=== PATIENT | female | born 1985 | race Caucasian/White ===

== ENCOUNTER 2019-09-02 05:39 | Inpatient (IN) | payer OTHER, SELFPAY ==
[2019-09-02 06:07] LABS: BHCG - Serum Negative (NEGATIVE); Pregs Control Background? CLEAR/WHITE (CLR/WHITE); Pregs Control Bar Appear? YES (CONTROL BAR)
[2019-09-02] MEDS ORDERED: Insulin Regular 100 units/100 ml in NS IVPB SCH (06:15)
[2019-09-02 06:18] LABS: Band 7 % (5-11); Elliptocytes SLIGHT = 2-5 cells (100X) (0-1/hpf); Hemoglobin 18.4 g/dL (12.0-16.0); Lymphocytes 6 % (21-51); MDiff Complete? YES; Mean Corpuscular HGB CONC 34.9 g/dL (32.0-36.0); Mean Corpuscular Hemoglobin 33.1 pg (27.0-31.0); Mean Corpuscular Volume 94.7 fL (78.0-98.0); Mean Platelet Volume 7.9 fL (7.4-10.4); Monocytes 2 % (0-10); Neutrophil 85 % (42-75); Platelet Count 219 thou/uL (130-400); Platelet Morphology Comment Appears Adequate; RBC Distribution Width 13.7 % (11.5-14.5); Red Blood Cell (RBC) Count 5.56 mill/uL (4.20-5.40)
[2019-09-02] MEDS ORDERED: Sodium Chloride 0.9% 1,000 ML IV PRN ×4 (06:23)
[2019-09-02] MEDS ORDERED: NS 0.9% w/ 20 MEQ KCL 1,000 ML IV PRN (06:23)
[2019-09-02] MEDS ORDERED: CCU Electrolyte Replacement 1 EACH IVPB ONE (06:23)
[2019-09-02] MEDS ORDERED: Dextrose 5 %-0.45 % NaCl 1,000 ML IV PRN (06:23)
[2019-09-02 06:25] LABS: ALT (SGPT) 12 U/L (8-55); AST (SGOT) 12 U/L (5-34); Albumin 4.8 g/dL (3.5-5.0); Alkaline Phosphatase 96 U/L (40-110); BUN (Urea Nitrogen) 16 mg/dL (7.0-18.7); Bilirubin, Total 0.9 mg/dL (0.2-1.2); Calc. Creatinine Clearance 0 mL/min (70-130); Calcium 8.6 mg/dL (7.8-10.44); Chloride 108 mmol/L (98-107); Estimated GFR-MDRD 41; Globulin 3.5 g/dL (2.4-3.5); Glucose 425 mg/dL (70-105); Magnesium 2.1 mg/dL (1.6-2.6); Potassium 3.9 mmol/L (3.5-5.1); Protein, Total 8.3 g/dL (6.0-8.3); Sodium 135 mmol/L (136-145)
[2019-09-02 06:29] LABS: Carbon Dioxide Less than 8 mmol/L (22-29)
[2019-09-02] MEDS ORDERED: PHOS-NAK 1 PKT PACK PO PRN ×2 (06:33)
[2019-09-02] MEDS ORDERED: CCU ELECTROLYTE REPLACEMENT PROTOCOL FS PRN (06:33)
[2019-09-02] MEDS ORDERED: Magnesium 2 GM/50 ML 2 GM in Premix Bag 1 BAG IVPB PRN (06:33)
[2019-09-02] MEDS ORDERED: Potassium Phosphate 12 MMOL in Sodium Chloride 0.9% 250 ML 250 ML IV PRN (06:33)
[2019-09-02] MEDS ORDERED: Potassium Phosphate 15 MMOL in Sodium Chloride 0.9% 250 ML 250 ML IV PRN (06:33)
[2019-09-02] MEDS ORDERED: Potassium Chloride 20 MEQ TAB PO PRN (06:33)
[2019-09-02] MEDS ORDERED: Potassium Chloride 40 MEQ in Sodium Chloride 0.9% 250 ML 250 ML IVPB PRN (06:33)
[2019-09-02] MEDS ORDERED: Magnesium Oxide 400 MG TAB PO PRN (06:33)
[2019-09-02] MEDS ORDERED: Potassium Phosphate 9 MMOL in Sodium Chloride 0.9% 100 ML IVPB PRN (06:33)
--- NOTE | 2019-09-02 07:19 | HP ---
CHIEF COMPLAINT: Shortness of breath, excessive thirst and urination. HISTORY OF PRESENT ILLNESS: Ms. Espinal is a 34-year-old female with no significant past medical history, presents to the emergency room with shortness of breath, polyuria, polydipsia, has been going on for the last 2 days. In the emergency room, the patient was tachypneic. Lab work, the patient had a glucose more than 400. Venous pH is 6.8. The patient denies any history of diabetes. Denies fever or chills. The patient was started on IV fluids, IV insulin. The patient is being admitted to the intensive care unit for further management. PAST MEDICAL HISTORY: No significant past medical history. PAST SURGICAL HISTORY: Reviewed and not pertinent. FAMILY HISTORY: Reviewed. HOME MEDICATIONS: See home medication reconciliation form for updated medications. SOCIAL HISTORY: The patient drinks socially twice a month. Denies drug use. No smoking history. ALLERGIES: NO KNOWN ALLERGIES. REVIEW OF SYSTEMS: Review of 14 systems negative except what is mentioned in history of present illness. PHYSICAL EXAMINATION: GENERAL: The patient is awake, lethargic, and tachypneic. VITAL SIGNS: Blood pressure is 130/90, respiratory rate is 30, pulse is 101, oxygen saturation is 100% on room air, temperature is 95.6. HEAD AND NECK: Normocephalic, atraumatic. Mucous membranes dry. NECK: Supple. No JVD. CHEST: Fair bilateral air entry. HEART: S1, S2. Regular. Tachycardic. ABDOMEN: Soft, nontender. NEUROLOGIC: Awake, alert, lethargic. PSYCHIATRIC: Unable to assess. EXTREMITIES: No clubbing, no cyanosis. GENITOURINARY: Suprapubic tenderness. No flank tenderness. LABORATORY DATA: Ketones 10.1, sodium was 135, glucose 425, BUN is 16, creatinine 1.4, potassium is 3.9, WBC is 22, hemoglobin 18.4, platelets 219. ASSESSMENT: 1. Diabetic ketoacidosis, new onset diabetes. 2. Shortness of breath secondary to metabolic acidosis. 3. Leukocytosis, probably hemoconcentration. No obvious source of infection. We will send for urinalysis to further results. 4. Acute kidney injury. PLAN: 1. Admit to ICU. 2. IV fluids. 3. Continue insulin drip. 4. Monitor and correct electrolytes. 5. Monitor kidney function and urine output. 6. Follow urinalysis results. 7. The patient will need diabetic teaching. 8. DVT prophylaxis as appropriate. 9. Expected length of stay, 2 midnights or more. Job ID: [id number]
[2019-09-02 07:46] LABS: BUN (Urea Nitrogen) 14 mg/dL (7.0-18.7); Calc. Creatinine Clearance 0 mL/min (70-130); Calcium 6.8 mg/dL (7.8-10.44); Carbon Dioxide Less than 8 mmol/L (22-29); Chloride 117 mmol/L (98-107); Estimated GFR-MDRD 61; Glucose 347 mg/dL (70-105); Potassium 3.1 mmol/L (3.5-5.1); Sodium 138 mmol/L (136-145)
[2019-09-02] MEDS ORDERED: cefTRIAXone\\ROCEPHIN 1 GM in Sodium Chloride 0.9% 100 ML IVPB SCH (08:30)
[2019-09-02] MEDS: NS 0.9% w/ 20 MEQ KCL 1,000 ML IV PRN ×2 (08:43→11:02)
[2019-09-02 09:02] LABS: Bilirubin Negative (Negative); Blood, Urine Negative (Negative); Clarity Clear (Clear); Glucose, Urine (Dipstick) Greater than 1000 mg/dL (Negative); Leukocyte Negative Leu/uL (Negative); Nitrite Negative (Negative); Protein, Urine (Dipstick) 50 mg/dL (Neg-Trace); RBC/HPF 0-3 HPF (0-3); Squamous Epithelial None Seen HPF (0-3); Urobilinogen Normal mg/dL (Less than 2); WBC/HPF 0-3 HPF (0-3)
[2019-09-02 09:03] LABS: Bacteria/HPF 1+ HPF (None Seen)
--- NOTE | 2019-09-02 09:15 | RAD ---
PORTABLE CHEST 1 VIEWE: Date: 09/02/2019 Time: 0603 hours HISTORY: Difficulty breathing. FINDINGS: The heart size is normal. The lungs are well expanded without focal areas of consolidation, pneumotho races, or pleural effusions. IMPRESSION: No acute process. POS: OFF
[2019-09-02] MEDS: Sodium Chloride 0.9% 1,000 ML IV SCH ×2 (11:02→15:47)
[2019-09-02 12:32] LABS: BUN (Urea Nitrogen) 11 mg/dL (7.0-18.7); Calc. Creatinine Clearance 0 mL/min (70-130); Chloride 122 mmol/L (98-107); Estimated GFR-MDRD 78; Glucose 158 mg/dL (70-105); Potassium 3.4 mmol/L (3.5-5.1); Sodium 136 mmol/L (136-145)
[2019-09-02 12:37] LABS: Carbon Dioxide Less than 8 mmol/L (22-29)
[2019-09-02] MEDS ORDERED: MEROPENEM 1 GM/50 ML 1 GM in Premix Bag 1 BAG IVPB SCH (14:00)
[2019-09-02 15:12] LABS: Actual Bicarbonate (HCO3a) 5.1 mEq/L (22-28); Base Excess (BEa) -21.1 mEq/L (-2.0 to +3.0); Calcium, Ionized 1.27 mmol/L (1.12-1.30); Carboxyhemoglobin (COHb) 0.6 gm% (0.0-3.0); Hemoglobin (Hb) 14.4 g/dL (12.0-16.0); O2 Tension (PaO2), arterial 115.9 mmHg (80.0-100.0); Potassium - ABG Lab 2.96 mmol/L (3.70-5.30)
[2019-09-02 15:14] LABS: CO2 Tension 14.4 mmHg (35.0-45.0); Puncture Site RRA; pH, Arterial 7.16 (7.35-7.45)
[2019-09-02] MEDS ORDERED: Ondansetron PF 4 MG/2 ML Vial IVP PRN (15:14)
[2019-09-02] MEDS ORDERED: Sodium Bicarb 50 MEQ/50 ML Abboject 8.4% SYRINGE IVP SCH (15:45)
[2019-09-02 16:02] LABS: #Monocytes 0.8 thou/uL (0.11-0.59); #Neutrophils 11.1 thou/uL (1.40-6.50); %Basophils 0.2 % (0.0-1.0); %Eosinophils 0.2 % (0.0-10.0); %Lymphocytes 7.9 % (21.0-51.0); %Monocytes 6.2 % (0.0-10.0); %Neutrophils 85.5 % (42.0-75.0); Hemoglobin 14.8 g/dL (12.0-16.0); Mean Corpuscular HGB CONC 34.4 g/dL (32.0-36.0); Mean Corpuscular Hemoglobin 32.4 pg (27.0-31.0); Mean Corpuscular Volume 94.2 fL (78.0-98.0); Mean Platelet Volume 7.7 fL (7.4-10.4); Platelet Count 122 thou/uL (130-400); RBC Distribution Width 13.8 % (11.5-14.5); Red Blood Cell (RBC) Count 4.57 mill/uL (4.20-5.40)
[2019-09-02 16:11] LABS: BUN (Urea Nitrogen) 11 mg/dL (7.0-18.7); Calc. Creatinine Clearance 0 mL/min (70-130); Calcium 7.4 mg/dL (7.8-10.44); Chloride 118 mmol/L (98-107); Estimated GFR-MDRD 78; Glucose 174 mg/dL (70-105); Magnesium 1.5 mg/dL (1.6-2.6); Sodium 135 mmol/L (136-145)
[2019-09-02 16:13] LABS: Carbon Dioxide Less than 8 mmol/L (22-29); Potassium 2.8 mmol/L (3.5-5.1)
[2019-09-02 16:14] LABS: Phosphorus Less than 1.0 mg/dL (2.3-4.7)
[2019-09-02] MEDS ORDERED: Magnesium 2 GM/50 ML 2 GM in Premix Bag 1 BAG IVPB SCH (17:00)
[2019-09-02] MEDS ORDERED: Calcium Gluconate 4.6 MEQ in Sodium Chloride 0.9% 100 ML IVPB SCH (17:34)
[2019-09-02] MEDS: D5 1/2 NS w/20 mEq KCL 1,000 ML IV PRN (18:06)
[2019-09-02 18:35] VITALS: BMI 22.8
[2019-09-02 19:20] LABS: Lactic Acid 0.8 mmol/L (0.5-2.2)
[2019-09-02 19:24] LABS: Anion Gap 11 mmol/L (10-20); BUN (Urea Nitrogen) 10 mg/dL (7.0-18.7); Calc. Creatinine Clearance 109 mL/min (70-130); Calcium 7.3 mg/dL (7.8-10.44); Carbon Dioxide 10 mmol/L (22-29); Chloride 115 mmol/L (98-107); Estimated GFR-MDRD 87; Glucose 257 mg/dL (70-105); Sodium 133 mmol/L (136-145)
--- NOTE | 2019-09-02 19:24 | PDOC.EVN ---
Event Note - Event Note Event Note: Pt seen in foollowup re: DKA. Clinically slowly improving. However, continues to be acidotic. Bicarb administered. Pt received levofloxacin.
[2019-09-02 19:34] LABS: Potassium 2.5 mmol/L (3.5-5.1)
[2019-09-02] MEDS: Potassium Chloride 40 MEQ in Premix Bag 1 BAG IVPB PRN (19:59)
[2019-09-02] MEDS: HUMULIN R 100 UNITS in Sodium Chloride 0.9% 100 ML IVPB SCH (22:09)
[2019-09-03] MEDS: D5 1/2 NS w/20 mEq KCL 1,000 ML IV PRN ×6 (01:14→23:03)
[2019-09-03 01:29] LABS: Anion Gap 9 mmol/L (10-20); BUN (Urea Nitrogen) 11 mg/dL (7.0-18.7); Calc. Creatinine Clearance 106 mL/min (70-130); Calcium 7.2 mg/dL (7.8-10.44); Carbon Dioxide 13 mmol/L (22-29); Chloride 116 mmol/L (98-107); Estimated GFR-MDRD 85; Glucose 194 mg/dL (70-105); Magnesium 1.8 mg/dL (1.6-2.6); Phosphorus Less than 1.0 mg/dL (2.3-4.7); Sodium 135 mmol/L (136-145)
[2019-09-03 01:33] LABS: Potassium 2.6 mmol/L (3.5-5.1)
[2019-09-03] MEDS: Potassium Chloride 40 MEQ in Premix Bag 1 BAG IVPB PRN ×2 (01:50→07:05)
[2019-09-03 06:39] LABS: Mean Corpuscular HGB CONC 35.3 g/dL (32.0-36.0); Mean Corpuscular Hemoglobin 32.3 pg (27.0-31.0); Mean Corpuscular Volume 91.7 fL (78.0-98.0); Mean Platelet Volume 7.7 fL (7.4-10.4); Platelet Count 100 thou/uL (130-400); RBC Distribution Width 13.8 % (11.5-14.5); Red Blood Cell (RBC) Count 4.02 mill/uL (4.20-5.40); White Blood Cell (WBC) Count 9.3 thou/uL (4.8-10.8)
[2019-09-03 06:48] LABS: Anion Gap 7 mmol/L (10-20); BUN (Urea Nitrogen) 9 mg/dL (7.0-18.7); Calc. Creatinine Clearance 116 mL/min (70-130); Calcium 7.4 mg/dL (7.8-10.44); Carbon Dioxide 12 mmol/L (22-29); Chloride 121 mmol/L (98-107); Estimated GFR-MDRD Greater than 90; Glucose 146 mg/dL (70-105); Magnesium 2.1 mg/dL (1.6-2.6); Potassium 3.3 mmol/L (3.5-5.1); Sodium 137 mmol/L (136-145)
[2019-09-03 09:13] LABS: Hemoglobin 12.7 g/dL (12.0-16.0); Mean Corpuscular HGB CONC 34.2 g/dL (32.0-36.0); Mean Corpuscular Hemoglobin 31.8 pg (27.0-31.0); Mean Corpuscular Volume 93.1 fL (78.0-98.0); Mean Platelet Volume 7.5 fL (7.4-10.4); Platelet Count 108 thou/uL (130-400); RBC Distribution Width 13.8 % (11.5-14.5); Red Blood Cell (RBC) Count 3.99 mill/uL (4.20-5.40); White Blood Cell (WBC) Count 8.6 thou/uL (4.8-10.8)
[2019-09-03 09:38] LABS: Anion Gap 7 mmol/L (10-20); BUN (Urea Nitrogen) 8 mg/dL (7.0-18.7); Calc. Creatinine Clearance 122 mL/min (70-130); Calcium 7.5 mg/dL (7.8-10.44); Carbon Dioxide 14 mmol/L (22-29); Chloride 119 mmol/L (98-107); Estimated GFR-MDRD Greater than 90; Glucose 106 mg/dL (70-105); Potassium 3.2 mmol/L (3.5-5.1); Sodium 137 mmol/L (136-145)
[2019-09-03 09:46] LABS: Phosphorus Less than 1.0 mg/dL (2.3-4.7)
[2019-09-03] MEDS ORDERED: Potassium Chloride 20 MEQ TAB PO SCH (10:45)
[2019-09-03] MEDS ORDERED: Potassium Phosphate 30 MMOL in Sodium Chloride 0.9% 500 ML IVPB SCH (11:00)
[2019-09-03 11:20] LABS: Hemoglobin A1c 11.4 % (4.0-6.0)
[2019-09-03 11:27] LABS: Bicarbonate (HCO3v) 3.8 mmol/L (22.0-28.0); CO2 Tension (PvCO2) 23.2 mmHg (40.0-50.0); Chloride 112 mmol/L (98-107); Hemoglobin - Calc 18.3 g/dL (12.0-16.0); Potassium 3.8 mmol/L (3.5-5.1); Sodium 135 mmol/L (138-145); vO2 Saturation-calc 53.4 % (60.0-85.0)
[2019-09-03 11:28] LABS: Calcium, Ionized 1.19 mmol/L (See Comments:)
--- NOTE | 2019-09-03 16:52 | PDOC.HOSPP ---
- Subjective Encounter Date: 09/03/19 Encounter Time: 11:20 Subjective: Pt seen for followup re: DKA. feels better. - Objective Vital Signs & Weight: Vital Signs (12 hours) Temp 09/03/19 12:00 97.8 F 09/03/19 08:00 97.8 F Weight Weight 146 lb 4.8 oz Most Recent Monitor Data Heart Rate from ECG 91 NIBP 96/68 NIBP BP-Mean 77 Respiration from ECG 18 SpO2 100 I&O: 09/02/19 09/03/19 09/04/19 06:59 06:59 06:59 Intake Total 7199 2500 Output Total 6435 2330 Balance 764 170 Result Diagrams: 09/03/19 08:40 09/03/19 08:40 Additional Labs: Accuchecks 09/03/19 09/03/19 09/03/19 15:58 14:26 12:50 POC Glucose 138 H 110 129 H 09/03/19 09/03/19 09/03/19 11:30 09:57 08:17 POC Glucose 133 H 138 H 122 H 09/03/19 09/03/19 09/03/19 07:09 06:01 05:02 POC Glucose 132 H 142 H 161 H 09/03/19 09/03/19 09/03/19 04:12 02:58 02:05 POC Glucose 171 H 180 H 191 H 09/03/19 09/03/19 09/02/19 01:01 00:02 23:00 POC Glucose 195 H 174 H 149 H 09/02/19 09/02/19 09/02/19 22:06 21:03 20:03 POC Glucose 177 H 215 H 280 H 09/02/19 09/02/19 09/02/19 19:07 18:06 17:09 POC Glucose 264 H 269 H 229 H Labs and MARs reviewed by me EKG Reviewed by me: Yes (Tele: NSR) Hospitalist ROS - Review of Systems Cardiovascular: denies: chest pain, palpitations, orthopnea, paroxysmal noc. dyspnea, edema, light headedness Gastrointestinal: denies: nausea, vomiting, abdominal pain, diarrhea, constipation, melena, hematochezia - Medication Medications: Active Medications Generic Name Dose Route Start Last Admin Trade Name Freq PRN Reason Stop Dose Admin Insulin Human Regular 100 101 mls @ 0 mls/hr 09/02/19 06:30 09/02/19 22:09 units/ Sodium Chloride IVPB 101 mls INF NARESH Administration Protocol Titrate Potassium Chloride/Dextrose/Sod Cl 1,000 mls @ 250 mls/hr 09/02/19 06:23 04/23 12:49 D5 1/2 Ns W/20 Meq Kcl IV 1,000 mls .Q4H PRN Administration Step 4 of DKA Protocol Protocol Potassium Chloride/Sodium Chloride 1,000 mls @ 500 mls/hr 09/02/19 06:23 11:02 Ns 0.9% W/ 20 Meq Kcl IV 1,000 mls .Q2H PRN Administration Step 2 of DKA Protocol Protocol Potassium Chloride 40 meq/ 100 mls @ 50 mls/hr 09/02/19 06:33 09/03/19 07:05 Device IVPB 100 mls ASDIR PRN Administration FOR SERUM K+ 2.5 - 3.5 Magnesium Sulfate 1 gm/ Sodium 102 mls @ 102 mls/hr 09/02/19 06:33 09/03/19 01:50 Chloride IV 102 mls PRN PRN Administration MAG LEVEL 1.4 - 2.0 Magnesium Sulfate 2 gm/ Device 50 mls @ 50 mls/hr 09/02/19 06:33 09/02/19 17: 31 IVPB 50 mls ASDIR PRN Administration MAGNESIUM < 1.4 Potassium Phosphate 12 mmol/ 254 mls @ 63.5 mls/hr 09/02/19 06:33 09/02/19 16 :31 Sodium Chloride IV 254 mls ASDIR PRN Administration Serum phosphate 0.5-0.9 Potassium Phosphate 15 mmol/ 255 mls @ 63.75 mls/hr 09/02/19 06:33 09/03/19 02:51 Sodium Chloride IV 255 mls ASDIR PRN Administration Serum Phos < 0.5 Levofloxacin 750 mg/ Device 150 mls @ 100 mls/hr 09/02/19 13:00 09/03/19 12: 47 IVPB 150 mls Q24HR NARESH Administration Potassium Phosphate 30 mmol/ 510 mls @ 85 mls/hr 09/03/19 11:00 09/03/19 12: 47 Sodium Chloride IVPB 09/03/19 17:00 510 mls NOW NARESH Administration Ondansetron HCl 4 mg 09/02/19 15:14 09/02/19 15:47 Zofran IVP 4 mg Q6H PRN Administration Nausea/Vomiting Sodium Chloride 10 ml 09/02/19 09:00 09/03/19 09:01 Flush - Normal Saline IVF 10 ml Q12HR NARESH Administration - Exam General Appearance: awake alert Eye: anicteric sclera ENT: moist mucosa Neck: supple Heart: RRR Respiratory: CTAB Gastrointestinal: soft, non-tender, non-distended, normal bowel sounds Psychiatric: normal affect, normal behavior Hosp A/P (1) DKA (diabetic ketoacidoses) Code(s): E11.10 - TYPE 2 DIABETES MELLITUS WITH KETOACIDOSIS WITHOUT COMA Status: Acute (2) Hypophosphatemia Code(s): E83.39 - OTHER DISORDERS OF PHOSPHORUS METABOLISM Status: Acute (3) Hypokalemia Code(s): E87.6 - HYPOKALEMIA Status: Acute - Plan Pt is on DKA protocol for IV insulin and fluids. Phosphorus and potassium being replaced IV. Anion gap closed. Bicarb low, recheck labs.
[2019-09-03] MEDS: HUMULIN R 100 UNITS in Sodium Chloride 0.9% 100 ML IVPB SCH (18:13)
[2019-09-03 22:09] LABS: Anion Gap 8 mmol/L (10-20); BUN (Urea Nitrogen) 4 mg/dL (7.0-18.7); Calc. Creatinine Clearance 115 mL/min (70-130); Calcium 7.4 mg/dL (7.8-10.44); Carbon Dioxide 15 mmol/L (22-29); Chloride 117 mmol/L (98-107); Estimated GFR-MDRD Greater than 90; Glucose 201 mg/dL (70-105); Magnesium 1.8 mg/dL (1.6-2.6); Phosphorus 1.1 mg/dL (2.3-4.7); Potassium 3.4 mmol/L (3.5-5.1); Sodium 137 mmol/L (136-145)
[2019-09-04 00:26] VITALS: BP 103/67
[2019-09-04 05:48] LABS: #Eosinphils 0.1 thou/uL (0.0-0.7); #Lymphocytes 1.9 thou/uL (1.20-3.40); #Monocytes 0.4 thou/uL (0.11-0.59); #Neutrophils 2.7 thou/uL (1.40-6.50); %Basophils 0.6 % (0.0-1.0); %Eosinophils 1.1 % (0.0-10.0); %Lymphocytes 37.4 % (21.0-51.0); %Monocytes 8.1 % (0.0-10.0); %Neutrophils 52.9 % (42.0-75.0); Hemoglobin 11.6 g/dL (12.0-16.0); Mean Corpuscular HGB CONC 34.7 g/dL (32.0-36.0); Mean Corpuscular Hemoglobin 31.7 pg (27.0-31.0); Mean Corpuscular Volume 91.3 fL (78.0-98.0); Mean Platelet Volume 7.8 fL (7.4-10.4); Platelet Count 88 thou/uL (130-400); RBC Distribution Width 13.8 % (11.5-14.5); Red Blood Cell (RBC) Count 3.67 mill/uL (4.20-5.40); White Blood Cell (WBC) Count 5.1 thou/uL (4.8-10.8)
[2019-09-04 06:09] LABS: Anion Gap 8 mmol/L (10-20); BUN (Urea Nitrogen) Less than 4 mg/dL (7.0-18.7); Calc. Creatinine Clearance 116 mL/min (70-130); Calcium 7.4 mg/dL (7.8-10.44); Carbon Dioxide 19 mmol/L (22-29); Chloride 118 mmol/L (98-107); Estimated GFR-MDRD Greater than 90; Glucose 154 mg/dL (70-105); Magnesium 1.8 mg/dL (1.6-2.6); Potassium 3.2 mmol/L (3.5-5.1); Sodium 142 mmol/L (136-145)
[2019-09-04 06:12] LABS: Phosphorus 1.2 mg/dL (2.3-4.7)
[2019-09-04] MEDS: Potassium Chloride 40 MEQ in Premix Bag 1 BAG IVPB PRN (06:37)
[2019-09-04] MEDS ORDERED: Potassium Phosphate 30 MMOL in Sodium Chloride 0.9% 500 ML IVPB SCH (10:00)
[2019-09-04] MEDS ORDERED: Dextrose 5% in Water 1,000 ML IV PRN ×2 (10:29→11:24)
[2019-09-04] MEDS ORDERED: Dextrose 50% Abboject 50 ML SYRINGE IVP PRN ×2 (10:29→11:24)
[2019-09-04] MEDS ORDERED: D5 1/2 NS w/40 mEq KCL 1,000 ML IV SCH ×2 (10:30→10:45)
[2019-09-04] MEDS ORDERED: Insulin Glargine 10 UNITS in Pre-Filled Syringe 1 EACH SC SCH (10:30)
[2019-09-04] MEDS ORDERED: Sodium Chloride 0.9% 1,000 ML IV SCH (11:30)
[2019-09-04] MEDS: HumaLOG 300 UNITS/3 ML VIAL SC PRN ×3 (11:37→20:07)
[2019-09-04] MEDS: Sodium Chloride 0.9% 1,000 ML IV SCH (11:40)
[2019-09-04 12:10] LABS: Magnesium 1.9 mg/dL (1.6-2.6); Potassium 3.3 mmol/L (3.5-5.1)
[2019-09-04 12:16] LABS: Phosphorus 1.2 mg/dL (2.3-4.7)
--- NOTE | 2019-09-04 16:12 | PDOC.HOSPP ---
- Subjective Encounter Date: 09/04/19 Encounter Time: 11:00 Subjective: Pt seen for followup re: DKA. Feels better. - Objective Vital Signs & Weight: Vital Signs (12 hours) Temp Pulse Ox 09/04/19 15:41 98.4 F 09/04/19 11:52 98.1 F 09/04/19 07:51 100 09/04/19 07:38 97.7 F 09/04/19 04:26 97.7 F Weight Weight 146 lb 4.8 oz Most Recent Monitor Data Heart Rate from ECG 88 NIBP 103/68 NIBP BP-Mean 79 Respiration from ECG 17 SpO2 98 I&O: 09/03/19 09/04/19 09/05/19 06:59 06:59 06:59 Intake Total 7199 6151.50 Output Total 6435 5830 Balance 764 321.50 Result Diagrams: 09/04/19 05:39 09/04/19 11:35 Additional Labs: Accuchecks 09/04/19 09/04/19 09/04/19 15:29 12:59 11:15 POC Glucose 192 H 173 H 239 H 09/04/19 09/04/19 09/04/19 10:11 09:10 08:09 POC Glucose 191 H 168 H 126 H 09/04/19 09/04/19 09/04/19 07:28 06:15 05:18 POC Glucose 142 H 151 H 166 H 09/04/19 09/04/19 09/04/19 04:14 03:28 02:22 POC Glucose 164 H 178 H 184 H 09/04/19 09/04/19 09/03/19 01:24 00:08 23:13 POC Glucose 184 H 220 H 203 H 09/03/19 09/03/19 09/03/19 22:26 21:31 20:17 POC Glucose 191 H 193 H 201 H 09/03/19 09/03/19 09/03/19 19:16 18:16 17:18 POC Glucose 223 H 234 H 193 H Labs and MARs reviewed by me EKG Reviewed by me: Yes (Tele: NSR) Hospitalist ROS - Review of Systems Cardiovascular: denies: chest pain, palpitations, paroxysmal noc. dyspnea, light headedness Gastrointestinal: denies: nausea, vomiting, abdominal pain, diarrhea, constipation, melena, hematochezia - Medication Medications: Active Medications Generic Name Dose Route Start Last Admin Trade Name Freq PRN Reason Stop Dose Admin Potassium Chloride 40 meq/ 100 mls @ 50 mls/hr 09/02/19 06:33 09/04/19 06:37 Device IVPB 100 mls ASDIR PRN Administration FOR SERUM K+ 2.5 - 3.5 Magnesium Sulfate 1 gm/ Sodium 102 mls @ 102 mls/hr 09/02/19 06:33 09/04/19 06:37 Chloride IV 102 mls PRN PRN Administration MAG LEVEL 1.4 - 2.0 Magnesium Sulfate 2 gm/ Device 50 mls @ 50 mls/hr 09/02/19 06:33 09/02/19 17: 31 IVPB 50 mls ASDIR PRN Administration MAGNESIUM < 1.4 Potassium Phosphate 9 mmol/ 103 mls @ 25.75 mls/hr 09/02/19 06:33 09/03/19 23 :02 Sodium Chloride IVPB 103 mls ASDIR PRN Administration Phosphate 1.0-1.8 Potassium Phosphate 12 mmol/ 254 mls @ 63.5 mls/hr 09/02/19 06:33 09/02/19 16 :31 Sodium Chloride IV 254 mls ASDIR PRN Administration Serum phosphate 0.5-0.9 Potassium Phosphate 15 mmol/ 255 mls @ 63.75 mls/hr 09/02/19 06:33 09/03/19 02:51 Sodium Chloride IV 255 mls ASDIR PRN Administration Serum Phos < 0.5 Levofloxacin 750 mg/ Device 150 mls @ 100 mls/hr 09/02/19 13:00 09/04/19 12: 56 IVPB 150 mls Q24HR NARESH Administration Sodium Chloride 1,000 mls @ 75 mls/hr 09/04/19 11:45 09/04/19 11:40 Normal Saline 0.9% IV 1,000 mls .[id number] NARESH Administration Insulin Human Lispro 0 units 09/04/19 11:24 09/04/19 11:37 Humalog SC 3 units .MILD SLIDING SCALE PRN Administration MILD SLIDING SCALE Protocol Ondansetron HCl 4 mg 09/02/19 15:14 09/02/19 15:47 Zofran IVP 4 mg Q6H PRN Administration Nausea/Vomiting Sodium Chloride 10 ml 09/02/19 09:00 09/04/19 11:31 Flush - Normal Saline IVF 10 ml Q12HR NARESH Administration - Exam General Appearance: awake alert Eye: anicteric sclera ENT: normocephalic atraumatic, no oropharyngeal lesions Neck: supple Heart: RRR, normal peripheral pulses Respiratory: CTAB Gastrointestinal: soft, non-distended Skin: no rashes Psychiatric: normal affect, normal behavior Hosp A/P (1) DKA (diabetic ketoacidoses) Code(s): E11.10 - TYPE 2 DIABETES MELLITUS WITH KETOACIDOSIS WITHOUT COMA Status: Acute (2) Hypophosphatemia Code(s): E83.39 - OTHER DISORDERS OF PHOSPHORUS METABOLISM Status: Acute (3) Hypokalemia Code(s): E87.6 - HYPOKALEMIA Status: Acute - Plan Transition to SC insulin. Start 1800 gray diet. Replace Phosphorus and potassium.
[2019-09-04] MEDS ORDERED: Potassium Phosphate 30 MMOL in Sodium Chloride 0.9% 250 ML 250 ML IVPB SCH (16:15)
[2019-09-04] MEDS: Magnesium Oxide 400 MG TAB PO PRN ×2 (16:38→20:07)
[2019-09-04 23:52] LABS: Phosphorus 2.5 mg/dL (2.3-4.7)
[2019-09-05 03:56] LABS: Anion Gap 10 mmol/L (10-20); BUN (Urea Nitrogen) 7 mg/dL (7.0-18.7); Calc. Creatinine Clearance 112 mL/min (70-130); Calcium 7.7 mg/dL (7.8-10.44); Carbon Dioxide 22 mmol/L (22-29); Chloride 110 mmol/L (98-107); Estimated GFR-MDRD 90; Glucose 240 mg/dL (70-105); Magnesium 1.9 mg/dL (1.6-2.6); Phosphorus 2.6 mg/dL (2.3-4.7); Potassium 3.7 mmol/L (3.5-5.1); Sodium 138 mmol/L (136-145)
[2019-09-05] MEDS: Sodium Chloride 0.9% 1,000 ML IV SCH (04:32)
[2019-09-05] MEDS: HumaLOG 300 UNITS/3 ML VIAL SC PRN ×2 (06:17→11:31)
[2019-09-05 07:27] VITALS: TEMP 98
[2019-09-05] MEDS ORDERED: Insulin Glargine 10 UNITS in Pre-Filled Syringe 1 EACH SC SCH (12:15)
--- NOTE | 2019-09-05 17:07 | DIS ---
DATE OF ADMISSION: 09/02/2019 DATE OF DISCHARGE: 09/05/2019 PRIMARY CARE PROVIDER: Dr. Remington Gomes. DISCHARGE DIAGNOSES: 1. Diabetic ketoacidosis. 2. Newly diagnosed diabetes mellitus. 3. Hypophosphatemia. 4. Hypokalemia. 5. Hypomagnesemia. 6. Hyponatremia. 7. Metabolic acidosis. 8. Acute kidney injury. CONDITION: Condition of the patient on the day of discharge: Stable. I assessed Ms. Espinal on the day of discharge. She denies any chest pain or shortness of breath. Vital signs are stable. S1 and S2 are heard, regular. Lungs are clear to auscultation bilaterally. DISCHARGE MEDICATIONS: Lantus insulin 15 units daily. DIET: Diabetic diet. ACTIVITY: No restrictions. POST-ACUTE CARE FOLLOWUP: With primary care provider in 3 days. TIME SPENT: Total amount of time spent in coordinating this discharge: 20 minutes. HOSPITAL COURSE: Ms. Espinal is a pleasant 34-year-old lady, who was admitted to [facility] on September 02, 2019, for diabetic ketoacidosis secondary to newly diagnosed diabetes mellitus. Hemoglobin A1c was 11.4. She was treated per DKA protocol and transitioned to subcutaneous insulin. She was seen by dietitian. She also received insulin teaching. I am discharging her home on 15 units Lantus insulin, SoloSTAR Pen, one month supply to be dispensed. She reports that she already has a glucometer at home and I have written for 100 glucose test strips and 100 Lantus SoloSTAR needles. She will most likely need an increase in her insulin dose. I have advised her to check her blood sugars 3 times a day and show the readings to her primary care provider. She was initially treated with antibiotics, because of leukocytosis and concern for infection. Urinalysis did not show any evidence of urinary infection. At the time of this dictation, preliminary blood cultures are negative. She is advised to follow up with her primary care provider for final blood culture reports. Her leukocytosis resolved by September 03, 2019. Antibiotics are discontinued at the time of discharge. Many thanks for allowing me to participate in your patient's care. Please feel free to contact me with any questions or concerns. Job ID: [id number]
[2019-09-05] MEDS ORDERED: HumuLIN 70/30 (300 UNITS/3 ML VIAL) SC SCH (21:00)
[2019-09-06] MEDS ORDERED: Insulin Glargine 15 UNITS in Pre-Filled Syringe 1 EACH SC SCH (09:00)
--- NOTE | 2019-09-08 13:51 | EKG ---
Test Reason : Blood Pressure : / mmHG Vent. Rate : 103 BPM Atrial Rate : 103 BPM P-R Int : 118 ms QRS Dur : 102 ms QT Int : 376 ms P-R-T Axes : 069 067 037 degrees QTc Int : 492 ms Sinus tachycardia Possible Left atrial enlargement Borderline ECG Confirmed by MORIAH NEWELL M.D. ([id number]), television news video editor ANTONELLA ROSSI ([id number]) on 09/08/2019 1:51:45 PM Referred By: Confirmed By:MORIAH NEWELL M.D.
== END 2019-09-05 14:32 | disposition home or self-care (01) | DRG 638 ==
LOC: ERS 05:39 → IMCU/EMU 07:37
PROVIDERS: ADMIT Internal Medicine; ATTEND Internal Medicine
DX: E11.10 Type 2 diabetes mellitus with ketoacidosis without coma (principal); E87.1 Hypo-osmolality and hyponatremia; N17.9 Acute kidney failure, unspecified; E87.2 Acidosis; E83.39 Other disorders of phosphorus metabolism; E86.0 Dehydration; E11.9 Type 2 diabetes mellitus without complications; E87.6 Hypokalemia; E83.42 Hypomagnesemia; Z79.4 Long term (current) use of insulin
CPT/HCPCS: 36415; 36416; 36600; 71045; 80048; 80053; 81001; 82010; 82330; 82533; 82803; 82805; 83036; 83605; 83735; 84100; 84443; 84703; 85025; 85027; 87040; 93005; 96365; J1815; J1956; J2405; J3475; J3480; J3490; J7030; J7050

== ENCOUNTER 2023-04-21 20:25 | Emergency (ER) | payer BC, OTHER ==
[2023-04-21 21:37] LABS: Bacteria/HPF None Seen HPF (None Seen); Bilirubin Negative (Negative); Blood, Urine Negative (Negative); CAUTI Indications for Culture Pelvic or flank pain; Clarity Clear (Clear); Glucose, Urine (Dipstick) 70 mg/dL (Negative); Ketone, Urine 60 mg/dL (Negative); Leukocyte Negative Leu/uL (Negative); Nitrite Negative (Negative); Protein, Urine (Dipstick) Negative (Neg-Trace); RBC/HPF 0-3 HPF (0-3); Specific Gravity, Urine 1.025 (1.002-1.036); Squamous Epithelial 0-3 HPF (0-3); Urobilinogen Normal mg/dL (Less than 2); WBC/HPF 0-3 HPF (0-3)
[2023-04-21 21:38] LABS: Pregnancy Test - Urine (BHCG) POSITIVE (Negative); Pregu Control Background? CLEAR/WHITE (CLR/WHITE); Pregu Control Bar Appear? YES (CONTROL BAR); Specific Gravity 1.025 (1.002-1.036); Urine Culture Reflex No No
[2023-04-21] MEDS ORDERED: Ketorolac Tromethamine 30 MG (1 mL) VIAL ONE (22:21)
[2023-04-21] MEDS ORDERED: Morphine 4 MG/ML VIAL ONE (22:21)
[2023-04-21] MEDS ORDERED: Ondansetron PF 4 MG/2 ML Vial ONE (22:21)
[2023-04-21 22:30] LABS: #Basophils 0.1 thou/uL (0.0-0.2); #Monocytes 0.5 thou/uL (0.11-0.59); #Neutrophils 11.6 thou/uL (1.40-6.50); %Basophils 0.5 % (0.0-1.0); %Eosinophils 0.2 % (0.0-10.0); %Lymphocytes 13.7 % (21.0-51.0); %Monocytes 3.2 % (0.0-10.0); %Neutrophils 82.1 % (42.0-75.0); Hemoglobin 13.4 g/dL (12.0-16.0); Mean Corpuscular HGB CONC 35.3 g/dL (32.0-36.0); Mean Corpuscular Hemoglobin 30.5 pg (27.0-31.0); Mean Corpuscular Volume 86.4 fl (78.0-98.0); Platelet Count 233 10x3/uL (130-400); RBC Distribution Width 12.3 % (11.5-14.5); White Blood Cell (WBC) Count 14.1 10x3/uL (4.8-10.8)
[2023-04-21 22:47] LABS: BHCG - Serum POSITIVE (NEGATIVE); Pregs Control Background? CLEAR/WHITE (CLR/WHITE); Pregs Control Bar Appear? YES (CONTROL BAR)
[2023-04-21 23:25] LABS: ALT (SGPT) 12 U/L (8-55); AST (SGOT) 16 U/L (5-34); Albumin 4.2 g/dL (3.5-5.0); Alkaline Phosphatase 38 U/L (40-110); Anion Gap 13 mmol/L (10-20); BUN (Urea Nitrogen) 12 mg/dL (7.0-18.7); Bilirubin, Total 1.5 mg/dL (0.2-1.2); Calc. Creatinine Clearance 0 mL/min (70-130); Calcium 9.1 mg/dL (7.8-10.44); Carbon Dioxide 23 mmol/L (22-29); Chloride 103 mmol/L (98-107); Estimated GFR 91; Globulin 2.8 g/dL (2.4-3.5); Glucose 219 mg/dL (70-105); Sodium 134 mmol/L (136-145)
== END 2023-04-22 01:07 | disposition short-term general hospital (02) ==
LOC: ERS 20:25
DX: O00.80 Other ectopic pregnancy without intrauterine pregnancy (principal); E10.9 Type 1 diabetes mellitus without complications; Z79.4 Long term (current) use of insulin
CPT/HCPCS: 36415; 36416; 76856; 80053; 81001; 81025; 83605; 84702; 84703; 85025; 93005; 96374; 96375; J1885; J2270; J2405